=== PATIENT | female | born 1980 | race Asian ===

== ENCOUNTER 2016-05-30 14:29 | Emergency (ER) | payer OTHER ==
[~2016-05-30] VITALS: Ht 160 cm; Wt 110.2 kg
[2016-05-30 15:22] LABS: PLATELET COUNT 340 K/uL (152-353)
[2016-05-30 15:27] LABS: POTASSIUM 3.5 mmol/L (3.6-5.2); SODIUM 138 mmol/L (136-145)
== END 2016-05-30 16:49 | disposition home or self-care (01) ==
LOC: ED 14:29
PROVIDERS: Emergency Medicine
DX: N83.201 Unspecified ovarian cyst, right side (principal); R10.9 Unspecified abdominal pain
CPT/HCPCS: 36415; 80053; 81000; 81025; 82150; 83690; 85027; 99283

== ENCOUNTER 2016-11-22 14:55 | Outpatient (CLI) | payer OTHER ==
[2016-11-22 15:12] LABS: PLATELET COUNT 314 K/uL (152-353)
[2016-11-22 15:37] LABS: POTASSIUM 3.5 mmol/L (3.6-5.2); SODIUM 138 mmol/L (136-145)
== END 2016-11-22 15:55 | disposition home or self-care (01) ==
LOC: LABW 14:55
PROVIDERS: Physician Assistant
DX: F41.8 Other specified anxiety disorders (principal); R23.2 Flushing; G47.09 Other insomnia; Z98.84 Bariatric surgery status
CPT/HCPCS: 36415; 80053; 82607; 82652; 82670; 83001; 83002; 83735; 84439; 84443; 85027

== ENCOUNTER 2017-02-17 17:47 | Emergency (ER) | payer OTHER ==
[~2017-02-17] VITALS: Ht 157.5 cm; Wt 97.5 kg
[2017-02-17 18:43] LABS: PLATELET COUNT 352 K/uL (152-353)
[2017-02-17 18:53] LABS: POTASSIUM 4.1 mmol/L (3.6-5.2); SODIUM 136 mmol/L (136-145)
[2017-02-17 19:09] LABS: PARTIAL THROMBOPLASTIN TIME 27.6 SECONDS (24.5-33.6)
[2017-02-17 19:51] VITALS: BP 141/90; TEMP 98.5
== END 2017-02-17 19:53 | disposition home or self-care (01) ==
LOC: ED 17:47
DX: R07.89 Other chest pain (principal); M51.27 Other intervertebral disc displacement, lumbosacral region; I10 Essential (primary) hypertension
CPT/HCPCS: 36415; 80053; 80307; 81000; 82550; 82553; 84484; 85027; 85610; 85730; 86318; 93005; 96374; 99284; G0479; J1885

== ENCOUNTER 2017-03-02 14:11 | Outpatient (CLI) | payer OTHER | END 2017-03-02 19:02 | disposition home or self-care (01) | LOC: MRI 14:11 | DX: M51.26 Other intervertebral disc displacement, lumbar region (principal); R93.7 Abnormal findings on diagnostic imaging of other parts of musculoskeletal system ==

== ENCOUNTER 2017-05-04 13:22 | Outpatient (CLI) | payer OTHER | END 2017-05-04 21:40 | disposition home or self-care (01) | LOC: CT 13:22 | DX: R31.9 Hematuria, unspecified (principal) ==

== ENCOUNTER 2017-06-10 11:31 | Emergency (ER) | payer OTHER ==
[~2017-06-10] VITALS: Ht 160 cm; Wt 98.9 kg
[2017-06-10 12:17] LABS: PLATELET COUNT 301 K/uL (152-353)
[2017-06-10 12:18] LABS: POTASSIUM 3.3 mmol/L (3.6-5.2); SODIUM 139 mmol/L (136-145)
[2017-06-10 12:32] LABS: PARTIAL THROMBOPLASTIN TIME 28.1 SECONDS (24.5-33.6)
[2017-06-10 18:00] VITALS: BP 127/82; TEMP 98.5
== END 2017-06-10 18:00 | disposition home or self-care (01) ==
LOC: ED 11:31
DX: K21.9 Gastro-esophageal reflux disease without esophagitis (principal); K22.4 Dyskinesia of esophagus
CPT/HCPCS: 36415; 80053; 80307; 81000; 82550; 82553; 84484; 85027; 85610; 85730; 93005; 96374; 99284; J3490

== ENCOUNTER 2017-11-27 21:44 | Emergency (ER) | payer OTHER ==
[~2017-11-27] VITALS: Ht 157.5 cm; Wt 99.8 kg
[2017-11-28 03:23] VITALS: BP 113/74; TEMP 98.4
== END 2017-11-28 03:23 | disposition home or self-care (01) ==
LOC: ED 21:44
DX: R10.13 Epigastric pain (principal); K91.89 Other postprocedural complications and disorders of digestive system
CPT/HCPCS: 74022; 96372; 99283; J1610; J1885

== ENCOUNTER 2018-02-02 10:14 | Outpatient (CLI) | payer OTHER | END 2018-02-02 19:23 | disposition home or self-care (01) | LOC: RAD 10:14 | DX: M54.17 Radiculopathy, lumbosacral region (principal) ==

== ENCOUNTER 2018-05-25 18:30 | Emergency (ER) | payer OTHER ==
[~2018-05-25] VITALS: Ht 157.5 cm; Wt 104.3 kg
[2018-05-25 18:53] LABS: PLATELET COUNT 324 K/uL (152-353)
[2018-05-25 19:05] LABS: POTASSIUM 3.5 mmol/L (3.6-5.2)
[2018-05-25 21:05] VITALS: BP 143/88; TEMP 98.2
== END 2018-05-25 21:05 | disposition home or self-care (01) ==
LOC: ED 18:30
PROVIDERS: Family Medicine
DX: R10.13 Epigastric pain (principal); R07.89 Other chest pain; K21.9 Gastro-esophageal reflux disease without esophagitis; E87.6 Hypokalemia; K59.00 Constipation, unspecified
CPT/HCPCS: 36415; 74022; 80053; 81000; 82150; 83690; 85027; 93005; 99283

== ENCOUNTER 2018-09-17 18:34 | Emergency (ER) | payer OTHER ==
[~2018-09-17] VITALS: Ht 157.5 cm; Wt 108.0 kg
[2018-09-17] MEDS ORDERED: STRATTERA25 MG PO (18:52)
[2018-09-17] MEDS ORDERED: HYDR10TA10 PO (18:52)
[2018-09-17] MEDS ORDERED: TOPAMAX25 MG PO (18:52)
[2018-09-17 19:26] LABS: PLATELET COUNT 321 K/uL (152-353)
[2018-09-17 19:35] LABS: POTASSIUM 3.4 mmol/L (3.6-5.2)
[2018-09-17 21:00] VITALS: BP 116/56; TEMP 97.8
== END 2018-09-17 21:00 | disposition home or self-care (01) ==
LOC: ED 18:34
PROVIDERS: Hospitalist
DX: K29.70 Gastritis, unspecified, without bleeding (principal); R11.2 Nausea with vomiting, unspecified; Z98.84 Bariatric surgery status
CPT/HCPCS: 80053; 81000; 82150; 83690; 85027; 96360; 96372; 96375; 99284; J1610; J2405

== ENCOUNTER 2018-10-18 11:09 | Emergency (ER) | payer OTHER ==
[~2018-10-18] VITALS: Ht 157.5 cm; Wt 108.4 kg
[~2018-10-18 11:09] MED LIST: HYDR10TA10 PO; STRATTERA25 MG PO; TOPAMAX25 MG PO
[2018-10-18 11:11] VITALS: TEMP 98.1
[2018-10-18 11:41] LABS: PLATELET COUNT 338 K/uL (152-353)
[2018-10-18] MEDS ORDERED: ENDOCET1 TAB PO (11:41)
[2018-10-18] MEDS ORDERED: ARIPIPRAZOLE2 MG PO (11:41)
[2018-10-18] MEDS ORDERED: REMERON SOLTAB15 MG PO (11:42)
[2018-10-18 11:52] LABS: POTASSIUM 3.8 mmol/L (3.6-5.2); SODIUM 140 mmol/L (136-145)
[2018-10-18 15:35] VITALS: BP 134/81
== END 2018-10-18 15:45 | disposition home or self-care (01) ==
LOC: ED 11:09
PROVIDERS: Emergency Medicine
DX: R07.89 Other chest pain (principal)
CPT/HCPCS: 36415; 80053; 82550; 82553; 84484; 85027; 85379; 93005; 99284

== ENCOUNTER 2018-12-21 17:42 | Emergency (ER) | payer OTHER ==
[~2018-12-21] VITALS: Ht 157.5 cm; Wt 108.4 kg
[~2018-12-21 17:42] MED LIST changes: +ARIPIPRAZOLE2 MG PO; +ENDOCET1 TAB PO; +REMERON SOLTAB15 MG PO
[2018-12-21 18:47] VITALS: BP 126/88; TEMP 98.8
== END 2018-12-21 18:50 | disposition home or self-care (01) ==
LOC: ED 17:42
DX: N39.0 Urinary tract infection, site not specified (principal)
CPT/HCPCS: 81000; 81025; 87077; 87086; 87088; 87185; 87186; 99283

== ENCOUNTER 2019-01-02 05:47 | Emergency (ER) | payer OTHER ==
[~2019-01-02] VITALS: Ht 157.5 cm; Wt 113.4 kg
[2019-01-02 06:45] VITALS: BP 141/86; TEMP 97.7
== END 2019-01-02 06:47 | disposition home or self-care (01) ==
LOC: ED 05:47
DX: M54.41 Lumbago with sciatica, right side (principal)
CPT/HCPCS: 96372; 99282; J1885

== ENCOUNTER 2019-03-11 16:00 | Emergency (ER) | payer OTHER ==
[~2019-03-11] VITALS: Ht 157.5 cm; Wt 113.4 kg
[2019-03-11 16:10] VITALS: TEMP 98.8
[2019-03-11 16:59] VITALS: BP 134/68
== END 2019-03-11 17:00 | disposition home or self-care (01) ==
LOC: ED 16:00
DX: M54.5 Low back pain (principal); G89.29 Other chronic pain; M51.86 Other intervertebral disc disorders, lumbar region
CPT/HCPCS: 96372; 99283; J1885; J2930

== ENCOUNTER 2019-04-04 00:34 | Emergency (ER) | payer OTHER ==
[~2019-04-04] VITALS: Ht 157.5 cm; Wt 108.9 kg
[2019-04-04 03:08] VITALS: BP 142/70; TEMP 98.1
== END 2019-04-04 03:08 | disposition home or self-care (01) ==
LOC: ED 00:34
DX: J06.9 Acute upper respiratory infection, unspecified (principal)
CPT/HCPCS: 87502; 87651; 99283

== ENCOUNTER 2019-05-18 06:06 | Emergency (ER) | payer OTHER ==
[~2019-05-18] VITALS: Ht 157.5 cm; Wt 108.9 kg
[2019-05-18 06:10] VITALS: BP 130/79
[2019-05-18 06:59] VITALS: TEMP 97.5
== END 2019-05-18 07:01 | disposition home or self-care (01) ==
LOC: ED 06:06
DX: J06.9 Acute upper respiratory infection, unspecified (principal); B34.9 Viral infection, unspecified
CPT/HCPCS: 87502; 87651; 99283

== ENCOUNTER 2020-06-18 08:29 | Outpatient (CLI) | payer OTHER | END 2020-06-18 21:29 | disposition home or self-care (01) | LOC: CT 08:29 | PROVIDERS: ATTEND Nurse Practitioner Family | DX: M54.9 Dorsalgia, unspecified (principal); R10.9 Unspecified abdominal pain; R80.9 Proteinuria, unspecified; R31.9 Hematuria, unspecified ==

== ENCOUNTER 2020-08-14 11:30 | Outpatient (CLI) | payer OTHER | END 2020-08-14 22:45 | disposition home or self-care (01) | LOC: RAD 11:30 | PROVIDERS: ATTEND Nurse Practitioner Family | DX: M54.9 Dorsalgia, unspecified (principal) ==

== ENCOUNTER 2021-12-03 10:03 | Outpatient (CLI) | payer OTHER | END 2021-12-03 19:24 | disposition home or self-care (01) | LOC: MRI 10:03 | PROVIDERS: ATTEND Nurse Practitioner | DX: M54.59 Other low back pain (principal) ==

== ENCOUNTER 2022-05-27 11:08 | Emergency (ER) | payer OTHER ==
[~2022-05-27] VITALS: Ht 157.5 cm; Wt 117.5 kg
[2022-05-27 11:09] VITALS: BP 176/103; TEMP 98.9
[2022-05-27 11:34] LABS: PLATELET COUNT 373 K/uL (152-353)
[2022-05-27 11:43] LABS: POTASSIUM 3.3 mmol/L (3.6-5.2)
== END 2022-05-27 12:57 | disposition home or self-care (01) ==
LOC: ED 11:08
PROVIDERS: Emergency Medicine
DX: R07.89 Other chest pain (principal); I10 Essential (primary) hypertension; E87.6 Hypokalemia
CPT/HCPCS: 80048; 84484; 85027; 85379; 93005; 99283

== ENCOUNTER 2022-08-10 09:21 | Outpatient (CLI) | payer OTHER | END 2022-08-10 18:55 | disposition home or self-care (01) | LOC: CT 09:21 | PROVIDERS: ATTEND Nurse Practitioner Family | DX: R10.9 Unspecified abdominal pain (principal) ==